=== PATIENT | male | born 1985 | race African-American/Black ===

== ENCOUNTER 2017-06-14 05:11 | Emergency (ER) | payer MEDICAID ==
[~2017-06-14] VITALS: Ht 180.3 cm; Wt 93.0 kg
[2017-06-14 07:27] VITALS: BP 139/68
== END 2017-06-14 08:31 | disposition left against medical advice (07) ==
LOC: EDBD 05:11 → ER 05:11
DX: R41.82 Altered mental status, unspecified (principal); R53.1 Weakness; F12.10 Cannabis abuse, uncomplicated
CPT/HCPCS: 99283